=== PATIENT | male | born 2000 | race Caucasian/White ===

== ENCOUNTER 2025-01-26 09:28 | Emergency (ER) | payer OTHER, SELFPAY ==
--- NOTE | ~2025-01-26 | US_ITS ---
EXAMINATION: US SCROTUM HISTORY: lump in scrotum. COMPARISON: There are no prior studies for comparison. FINDINGS: Real-time grayscale ultrasound imaging of the scrotum was performed. Color and spectral Doppler analysis was also performed. RIGHT TESTICLE: The right testis measures 5.2 x 1.8 x 2.6 cm and demonstrates mildly heterogeneous echotexture. No masses are seen. The right testis demonstrates normal arterial and venous color Doppler and spectral waveforms. RIGHT EPIDIDYMIS: Normal in size, shape, and vascularity. There is a tiny 4 x 2 x 3 mm epididymal head cyst. LEFT TESTICLE: The left testis measures 5.2 x 1.8 x 2.8 cm and demonstrates mildly heterogeneous echotexture. No masses are seen. The left testis demonstrates normal arterial and venous color Doppler and spectral waveforms. LEFT EPIDIDYMIS: Normal in size, shape, and vascularity. There is a 4 x 4 x 5 mm cyst in the epididymal tail. VARICOCELE: None. HYDROCELE: No significant hydrocele is seen. OTHER COMMENTS: There is a 3 mm probable rim calcified structure just beneath the skin of the left scrotum, of uncertain significance. This appears to correspond to the palpable findings. US/US scrotum IMPRESSION: 3 mm rim calcified structure just beneath the skin of the left scrotum corresponding to the palpable findings. This is of uncertain etiology and significance, possibly representing an epidermal inclusion cyst. Electronically signed by: Christiano Jordan MD 01/26/2025 12:30 PM EDT
--- NOTE | ~2025-01-26 | US_ITS ---
EXAMINATION: US SCROTUM HISTORY: lump in scrotum. COMPARISON: There are no prior studies for comparison. FINDINGS: Real-time grayscale ultrasound imaging of the scrotum was performed. Color and spectral Doppler analysis was also performed. RIGHT TESTICLE: The right testis measures 5.2 x 1.8 x 2.6 cm and demonstrates mildly heterogeneous echotexture. No masses are seen. The right testis demonstrates normal arterial and venous color Doppler and spectral waveforms. RIGHT EPIDIDYMIS: Normal in size, shape, and vascularity. There is a tiny 4 x 2 x 3 mm epididymal head cyst. LEFT TESTICLE: The left testis measures 5.2 x 1.8 x 2.8 cm and demonstrates mildly heterogeneous echotexture. No masses are seen. The left testis demonstrates normal arterial and venous color Doppler and spectral waveforms. LEFT EPIDIDYMIS: Normal in size, shape, and vascularity. There is a 4 x 4 x 5 mm cyst in the epididymal tail. VARICOCELE: None. HYDROCELE: No significant hydrocele is seen. OTHER COMMENTS: There is a 3 mm probable rim calcified structure just beneath the skin of the left scrotum, of uncertain significance. This appears to correspond to the palpable findings. US/US scrotum doppler IMPRESSION: 3 mm rim calcified structure just beneath the skin of the left scrotum corresponding to the palpable findings. This is of uncertain etiology and significance, possibly representing an epidermal inclusion cyst. Electronically signed by: Christiano Jordan MD 01/26/2025 12:30 PM EDT
[2025-01-26 10:05] VITALS: BP 132/92; PULSE 96; RESP 16; TEMP 36.8; O2SAT 97; BMI 21.6
--- NOTE | 2025-01-26 10:05 | ED.GENADULT ---
HPI - General Adult General Chief complaint: Urogenital-Male Stated complaint: Pain Groin Area Time Seen by Provider: 01/26/25 12:56 Source: patient and RN notes reviewed Mode of arrival: ambulatory Limitations: no limitations History of Present Illness ED Provider: Rosmery Bernard PA-C HPI narrative: This is a 24-year-old male who presents emergency department for evaluation of lump to scrotum for the last year. Patient states that he is unsure if it has changed in size however he states that he noticed it about 1 year ago. Patient also states that he has had some discomfort in the right inner groin line, describing it as a pressure-like sensation. Patient also reports that he has had purplish chase throughout his body which occurs intermittently. He denies any known medical problems. No known family medical problems. He denies any dysuria, urinary frequency, urgency. He states that he has never been sexually active. No fevers, chills, chest pain, shortness of breath, abdominal pain, nausea, vomiting or diarrhea. No other complaints or concerns at this time. MD complaint: Lump on scrotum Relieving factors: none Exacerbating factors: none Treatments prior to arrival: none Related Data Allergies Allergy/AdvReac Type Severity Reaction Status Date / Time No Known Allergies Allergy Verified 01/26/25 10:10 Review of Systems Review of Systems: Yes all other systems are reviewed and are negative Constitutional: Constitutional: Reports as per [facility] Past Medical History Attestation statement: The following information was validated with the patient. Physical Exam ED Vital Signs: Vital Signs - 24 hr 01/26/25 10:05 Temperature 98.3 F Pulse Rate 96 Respiratory Rate 16 Blood Pressure 132/92 H Pulse Oximetry 97 Oxygen Delivery Method Room Air BMI result Body Mass Index 21.6 Const General: cooperative, comfortable and no acute distress Orientation/consciousness: patient oriented x3 Limitations: no limitations HENMT Head: Yes normal to inspection, Yes normocephalic and Yes atraumatic Ears: hearing grossly normal bilaterally General nose exam: Normal external nose present Face and sinus: Yes normal facial exam Mouth: Normal oral and palatal mucosa present, oropharynx normal and moist mucous membranes Throat: Yes posterior oropharynx normal Eyes General: appearance normal, both eyes and all related structures Eyelids: Yes eyelids normal Conjunctivae: conjunctivae normal Sclerae: sclerae normal Pupils: Equal, round and reactive pupils present EOM: EOMs intact bilaterally Neck Neck: Yes normal visual inspection, Yes full ROM and Yes no lymphadenopathy Lymphatic: no lymphadenopathy noted Chest Chest palpation & inspection: normal inspection of the chest Resp Effort & Inspection: normal respiratory effort and able to speak in complete sentences Auscultation: clear to auscultation bilaterally, no crackles, no rales, no rhonchi and no wheezes Cardio Rate: regular rate Rhythm: regular rhythm Heart sounds: S1 normal heart sound present and S2 normal heart sound present GI Inspection: Yes normal to inspection Other: examination performed with Michel Yappn present at all times. Left scrotum, with 1 mm papule noted, no surrounding erythema or warmth, nontender. Right inner groin with no appreciable mild tenderness, no surrounding erythema or warmth, no palpable masses. Skin General skin exam: no rashes or lesions noted Trauma: no lacerations or abrasions Wounds: no wounds Neuro General: patient oriented x3 and moves all extremities Cranial nerves: Yes Equal, round and reactive pupils present Extrem General: Yes normal to inspection Right upper extremity: normal to inspection Left upper extremity: normal to inspection Right lower extremity: normal to inspection Left lower extremity: normal to inspection Medical Decision Making Medical Decision Making MDM Narrative: This is a 24-year-old male who presents emergency department with complaints of lump to scrotum for the last year. On arrival, patient well-appearing, under no acute distress. Patient's blood pressure mildly elevated 132/92, all other vital signs within normal limits. He is not sexually active. examination performed with papule noted to left scrotum, with no surrounding erythema or warmth, no drainage. Nontender. Right inner groin, with reported pain however no palpable masses, or pain appreciated. Patient also reporting purplish chase noted to his upper and lower extremities, no appreciable skin changes on examination today. Labs were obtained, he was no leukocytosis, stable H&H, LFTs within normal limits, kidney function within normal limits. Urine with high specific gravity and hematuria, he will follow-up with the Urology. Ultrasound revealing a 3 mm rim calcified structure just beneath the skin of the left scrotum, corresponding to the palpable findings. This is of uncertain significance, possibly representing an epidermal inclusion cyst. Discussed findings with patient. He will follow-up with Urology. Given strict return precautions. He understands and agrees with plan. Patient stable for discharge Differential Diagnosis Differential Diagnoses: The differential diagnosis associated with the presentation includes Hydrocele, cystocele, epididymitis, cyst, mass Lab Data [facility] Lab Attestation statement: I reviewed the patient's lab results. See [facility] 01/26/25 12:11 01/26/25 12:11 Labs: Lab Results 01/26/25 Range/Units 12:11 WBC 8.2 (4.8-10.8) X10*3/uL RBC 5.00 (4.60-5.80) X10*6/uL Hgb 15.2 (14.0-18.0) g/dl Hct 44.2 (42.0-52.0) % MCV 88.4 (80.0-98.0) fL MCH 30.4 (27.0-33.0) pg MCHC 34.4 (31.0-36.0) g/dl RDW 12.6 (11.0-16.0) % Plt Count 353 (160-400) X10*3/uL MPV 9.4 (9.4-12.4) fL Immature Gran % (Auto) 0.2 (0.0-0.4) % Neut % (Auto) 66.4 (45-73) % Lymph % (Auto) 24.9 (20-40) % [place] % (Auto) 6.7 (2-11) % Eos % (Auto) 1.6 (0-4) % Baso % (Auto) 0.2 (0-2) % Lymph # (Auto) 2.1 (1.2-4.9) X10*3/uL [place] # (Auto) 0.6 (0.1-1.2) X10*3/uL Eos # (Auto) 0.1 (0.0-0.4) X10*3/uL Baso # (Auto) 0.0 (0.0-0.2) X10*3/uL Abs Immat Gran (auto) 0.02 (0.00-0.03) X10*3/uL Absolute Neuts (auto) 5.5 (2.0-8.3) x10*3/uL Absolute Nucleated RBC 0.000 (0.0-0.012) X10*3/uL Nucleated RBC % (auto) 0.0 (0.0-0.2) /100WBC Sodium 140 (135-145) mmol/L Potassium 3.7 (3.3-5.1) mmol/L Chloride 106 (96-108) mmol/L Carbon Dioxide 26 (22-29) mmol/L Anion Gap 12 (12-20) BUN 15 (9-16) mg/dL Creatinine 0.74 (0.5-1.4) mg/dL Estim Creat Clear Calc 124.3 Estimated GFR > 60 Random Glucose 98 (60-115) mg/dL Calcium 9.2 (8.4-10.2) mg/dL Total Bilirubin 0.6 (0.0-1.0) mg/dL AST 19 (5-37) U/L ALT 20 (0-40) U/L Alkaline Phosphatase 43 (39-117) U/L Total Protein 7.1 (6.5-8.0) g/dL Albumin 4.7 (3.5-5.0) g/dL Urine Color Yellow Urine Appearance Clear Urine pH 6.0 (5.0-9.0) Ur Specific [place] >= 1.030 H (1.005-1.025) Urine Protein Negative (Neg-Trace) mg/dL Urine Glucose (UA) Negative (Negative) mg/dL Urine Ketones 40 (Negative) mg/dL Urine Blood Trace H (Negative) Urine Nitrite Negative (Negative) Ur Leukocyte Esterase Negative (Negative) Urine RBC 0-2 (0-2) /HPF Urine WBC 0-5 (0-5) /HPF Ur Squamous Epith Cells 0-2 (0-2) /HPF Urine Bacteria None Seen (None Seen) Hyaline Casts 0-2 (0-2) /LPF Chlam trachomat DNA PCR NOT DETECTED (Not Detect.) N.gonorrhoeae DNA (PCR) NOT DETECTED (Not Detect.) Radiology Impression Discussion of test interpretation with radiology: I have reviewed the radiologist's reading. Radiologist Impression: [address] [id number] Ultrasound Report Signed Patient: hSakir Reeder MR#: [id number] : 2000 Acct:[id number] Age/Sex: 24 / M ADM Date: 01/26/25 Loc: HO.ED Attending Dr: Ordering Physician: Generic ED Physician Date of Service: 01/26/25 Procedure(s): US scrotum Accession Number(s): [id number] cc: Generic ED Physician; Physician,None ~ EXAMINATION: US SCROTUM HISTORY: lump in scrotum. COMPARISON: There are no prior studies for comparison. FINDINGS: Real-time grayscale ultrasound imaging of the scrotum was performed. Color and spectral Doppler analysis was also performed. RIGHT TESTICLE: The right testis measures 5.2 x 1.8 x 2.6 cm and demonstrates mildly heterogeneous echotexture. No masses are seen. The right testis demonstrates normal arterial and venous color Doppler and spectral waveforms. RIGHT EPIDIDYMIS: Normal in size, shape, and vascularity. There is a tiny 4 x 2 x 3 mm epididymal head cyst. LEFT TESTICLE: The left testis measures 5.2 x 1.8 x 2.8 cm and demonstrates mildly heterogeneous echotexture. No masses are seen. The left testis demonstrates normal arterial and venous color Doppler and spectral waveforms. LEFT EPIDIDYMIS: Normal in size, shape, and vascularity. There is a 4 x 4 x 5 mm cyst in the epididymal tail. VARICOCELE: None. HYDROCELE: No significant hydrocele is seen. OTHER COMMENTS: There is a 3 mm probable rim calcified structure just beneath the skin of the left scrotum, of uncertain significance. This appears to correspond to the palpable findings. US/US scrotum IMPRESSION: 3 mm rim calcified structure just beneath the skin of the left scrotum corresponding to the palpable findings. This is of uncertain etiology and significance, possibly representing an epidermal inclusion cyst. Electronically signed by: Christiano Jordan MD 01/26/2025 12:30 PM EDT Dictated By: Christiano Jordan MD External Record Review External record reviewed: Inpatient record, Office record, Outpatient record, Prior outpatient labs, Prior outpatient radiology, Primary care record and Outside ED record Discharge Plan Discharge Clinical Impression: Testicular cyst Patient Disposition: Home, Self-Care Instructions: Testicle Pain (ED) Additional Instructions: You were seen in the emergency department due to lump in scrotum for the last year. Your ultrasound shows a 3 mm probable rim calcified structure just beneath the skin of the left scrotum. Uncertain of significance. Please follow-up with the urologist. This may be a cyst, the urologist can further assess this. Your blood work was reassuring. You do not have a significantly high white blood cell count, your liver function is within normal limits, your kidney function is within normal limits. Urine does not appear to be infected. It does appear that you may be slightly dehydrated, drink plenty of fluids. You also have trace blood in your urine, please follow-up with the urologist regarding this. You should get a primary care physician, you may call the [facility], or call your health insurance to see where they are accepting new patients. If any new or worsening symptoms occur including but not limited to high fevers, severe chest pain, shortness for breath, severe testicular pain, please seek emergent care. US/US scrotum IMPRESSION: 3 mm rim calcified structure just beneath the skin of the left scrotum corresponding to the palpable findings. This is of uncertain etiology and significance, possibly representing an epidermal inclusion cyst. Referrals: [facility] [Provider Group] Interventions: ED Discharge Assessment Last Done: 01/26/25 13:34 Discharge Date/Time: 01/26/25 13:34 Print Language: Faroese
[2025-01-26 12:16] LABS: MANUAL DIFF FLAG NO
[2025-01-26 12:19] LABS: Appearance Urine Clear; Color Urine Yellow; Glucose Urine UA Negative (Negative); Leukocyte Esterase Urine Negative (Negative); Nitrite Urine Negative (Negative); Specific Gravity - Urine >= 1.030 (1.005-1.025); UMIC TRIGGER UACC YES; Urine Blood Trace (Negative); Urine Ketones 40 mg/dL (Negative); Urine Protein Negative (Neg-Trace)
[2025-01-26 12:21] LABS: Bacteria Urine None Seen (None Seen); Hyaline Casts Urine 0-2 /LPF (0-2); RBC Urine 0-2 /HPF (0-2); Squamous Epithelial Cell Urine 0-2 /HPF (0-2); WBC Urine 0-5 /HPF (0-5)
[2025-01-26 12:22] LABS: Basophils Percent Auto 0.2 % (0-2); Eosinophils Absolute Auto 0.1 X10*3/uL (0.0-0.4); Eosinophils Percent Auto 1.6 % (0-4); Hematocrit 44.2 % (42.0-52.0); Hemoglobin 15.2 g/dl (14.0-18.0); Imm Gran Abs Auto 0.02 X10*3/uL (0.00-0.03); Imm Gran Pct Auto 0.2 % (0.0-0.4); Lymphocytes Absolute Auto 2.1 X10*3/uL (1.2-4.9); Lymphocytes Percent Auto 24.9 % (20-40); Mean Corpuscular HGB Conc 34.4 g/dl (31.0-36.0); Mean Corpuscular Hemoglobin 30.4 pg (27.0-33.0); Mean Corpuscular Volume 88.4 fL (80.0-98.0); Mean Platelet Volume 9.4 fL (9.4-12.4); Monocytes Absolute Auto 0.6 X10*3/uL (0.1-1.2); Monocytes Percent Auto 6.7 % (2-11); Neutrophils Absolute Auto 5.5 x10*3/uL (2.0-8.3); Neutrophils Percent Auto 66.4 % (45-73); Platelet Count 353 X10*3/uL (160-400); Red Cell Distribution Width 12.6 % (11.0-16.0); White Blood Count 8.2 X10*3/uL (4.8-10.8)
[2025-01-26 12:45] LABS: Alanine Aminotransferase 20 U/L (0-40); Albumin Level 4.7 g/dL (3.5-5.0); Alkaline Phosphatase 43 U/L (39-117); Anion Gap 12 (12-20); Aspartate Amino Transferase 19 U/L (5-37); Bilirubin Total 0.6 mg/dL (0.0-1.0); Blood Urea Nitrogen 15 mg/dL (9-16); Calcium 9.2 mg/dL (8.4-10.2); Carbon Dioxide 26 mmol/L (22-29); Chloride 106 mmol/L (96-108); Creatinine Clr Calc Pharmacy 124.3; Estimated Glomerular Filt Rate > 60; Glucose Random 98 mg/dL (60-115); Potassium 3.7 mmol/L (3.3-5.1); Sodium 140 mmol/L (135-145); Total Protein 7.1 g/dL (6.5-8.0)
[2025-01-26 13:34] VITALS: BP 132/92; PULSE 96; RESP 16; TEMP 36.8; O2SAT 97
[2025-01-26 13:54] LABS: CT PCR NOT DETECTED (Not Detect.); NG PCR NOT DETECTED (Not Detect.)
--- OUTSIDE RECORDS SUMMARY | 2025-01-26 14:56 | XMS_ITS | Clinical Summary ---
Author Organization [facility] Address [address] [place] [id number] Phone Care Team Providers Care Business Objects Report Developer Name Role Phone Marin Juarez MD Primary Care Provider [phone] Immunizations Immunization Administration Dates Next Due DTaP 5 04/26/2006, 2,05/01/2001,02/28,2000 HPV Vaccine 9 Valent 09/21/2017,07/16/2015 Hep A, ped/adol 09/21/2017,07/16/2015 Hep B, ped/adol 02/21/2002,05/01/2001,2000 Hib (PRP-T) 02/21/2002, 1,02/28/2001,12/31 IPV 04/26/2006, 2,02/28/2001,12/31 Influenza, injectable, quadr ivalent, preservative free 09/21/2017,07/16/2015 Influenza, injectable, trivalent 05/26/2010 Influenza, intranasal, quadrivalent 07/25/2013 MMR 04/26/2006,11/04/2001 Meningococcal Conj (Menactra) MCV4P 09/21/2017,0 05/16/2013 Pneumococcal Conjugate 05/01/2001,02/28/2001, Tdap 05/16/2013 Varicella 05/16/2013,11/04/2001 Social History Tobacco Use Types Packs/Day Years Used Date Smoking Tobacco: Never Comments:Never Smoker Sex and Gender Information Value Date Recorded Sex Assigned at Not on file Legal Sex Male 6:24 PM EDT Gender Identity Not on file Sexual Orientation Not on file Last Filed Vital Signs Vital Sign Reading Time Taken Comments Blood Pressure - - Pulse 72 09/21/2017 1:01 PM EST Temperature 36.9 ??C (98.4 ??F) 11/30/2017 2:37 PM ES T Respiratory Rate - - Oxygen Saturation - - Inhaled Oxygen Concentration - - Weight 49.9 kg (110 lb) 11/30/2017 2:37 PM EST Height 160.7 cm (5' 3.25 ) 11/30/2017 2:37 PM ES T Body Mass Index 19.33 11/30/2017 2:37 PM EST Plan of Treatment Health Maintenance Due Date Last Done Comments DTaP,Tdap,and Td Vaccines (7 - Td or Tdap) 05/16/2023 05/16/2013, 04/26/2006, 05/02/2002, Additional history exists Influenza Vaccines (#1) 2024 09/21/20 17, 07/16/2015, 07/25/2013, Additional history exists COVID-19 Vaccine ( season) 2024 Pneumococcal Vaccine Aged Out 05/01/2001, 02/28/2001, 2000 No longer eligible based on patient's age to complete this topic HIB Vaccines Completed 02/21/2002, 04/14, 02/28/2001, Additional history exists Hepatitis B Vaccines Completed 02/21/2002, 05/01/2001, 2000 IPV Vaccines Completed 04/26/2006, 04/14, 02/28/2001, Additional history exists MMR Vaccines Completed 04/26/2006, 11/04/2001 Varicella Vaccines Completed 05/16/2013, 11/04/2001 HPV Vaccines Completed 09/21/2017, 07/16/2015 Hepatitis A Vaccines Completed 09/21/2017, 07/16/20 Meningococcal Vaccine Completed 09/21/2017, 013 Men B Vaccine Aged Out No longer elig ible based on patient's age to complete this topic Care Teams Business Objects Report Developer Relationship Specialty Start Date End Date Marin Juarez MD [facility] [facility] [place] [address] PCP - General 02/20/18
--- OUTSIDE RECORDS SUMMARY | 2025-01-26 14:56 | XMS_ITS | Encounter Summary ---
Author Organization [facility] Address [address] [place] [address] Phone Care Team Providers Care Excellence Coach Name Role Phone Marin Juarez MD Primary Care Provider [phone] Encounter Details Date Type Department Care Team (Late st Contact Info) Description 12/22/2010 Conversion Encounter [facility] [address] [place] [address] Dr Mcdaniel ENOC [id number] Social History Tobacco Use Types Packs/Day Years Used Date Smoking Tobacco: Never Assessed Sex and Gender Information Value Date Recorded Sex Assigned at Not on file Legal Sex Male 6:24 PM EDT Gender Identity Not on file Sexual Orientation Not on file documented as of this encounter Plan of Treatment Not on file documented as of this encounter Visit Diagnoses Not on filedocumented in this encounter Care Teams Excellence Coach Relationship Specialty Start Date End Date Marin Juarez MD [address] [place] [address] Dr Mcdaniel [facility]OC [id number] PCP - General 02/20/18 documented as of this encounter
== END 2025-01-26 13:34 | disposition home or self-care (01) ==
PROVIDERS: Physician Assistant Medical; Emergency Provider Emergency Medicine
DX: N50.3 Cyst of epididymis (principal); R10.30 Lower abdominal pain, unspecified; R10.2 Pelvic and perineal pain; N50.9 Disorder of male genital organs, unspecified; Z79.899 Other long term (current) drug therapy
CPT/HCPCS: 36415; 76870; 80053; 81001; 85025; 87491; 87591; 93975; 99284

== ENCOUNTER → 2025-01-26 10:10 | Outpatient (BNV) | payer OTHER, SELFPAY | PROVIDERS: Visit Provider Radiology Diagnostic Radiology | DX: L94.2 Calcinosis cutis (principal); N50.3 Cyst of epididymis | CPT/HCPCS: 76870; 93975 ==

== ENCOUNTER 2025-03-03 18:54 | Emergency (ER) | payer OTHER, SELFPAY ==
--- NOTE | ~2025-03-03 | CT_ITS ---
CLINICAL HISTORY: LLQ pain CT abdomen and pelvis with contrast Comparison: None Findings: No consolidation or effusion. The liver, gallbladder, spleen, adrenal glands and pancreas are unremarkable. Kidneys, ureters and bladder are normal. No bowel obstruction or free air. No free fluid, abscess or adenopathy. Normal appendix. Scattered gas and fluid throughout nondistended small and large bowel. Mild engorgement of the vasa recta. Reference axial images 71-75, there is the suggestion of abnormal thickening of the rectum. No pneumatosis. No acute osseous finding. Impression: There is the suggestion of abnormal thickening involving the rectum. Correlation for proctitis. Outpatient GI follow-up could be considered. Scattered gas and fluid throughout nondistended small and large bowel may also be seen with enteritis. No free air, pneumatosis, abscess or significant adenopathy. This document has been electronically signed by: Jake Keith MD on 03/03/2025 22:42:20
[2025-03-03 19:11] VITALS: BP 116/72; PULSE 85; RESP 18; TEMP 36.2; O2SAT 98; BMI 22.3
--- NOTE | 2025-03-03 19:13 | ED.GENADULT ---
HPI - General Adult General Chief complaint: Abdominal Pain Stated complaint: Abd Pain 3 Days, Vomitting Time Seen by Provider: 03/03/25 21:47 Source: patient and family Mode of arrival: ambulatory Limitations: no limitations History of Present Illness ED Provider: YOU HPI narrative: 24 yo male with no sig PMH and no surgeries mom is here and thinks maybe a fam hx of colitis who has had nausea, AM vomiting, LLQ pain for 3 days. No known fevers, no change in BMs. He has no dysuria. He has never had this before. He notes it just won't go away. No OTC medications for it. MD complaint: abdominal pain Onset (ago): day(s) (3) Location: abdomen Radiation: non-radiation Severity: moderate Quality: aching Pain Consistency: intermittent Relieving factors: none Exacerbating factors: eating Associated symptoms: loss of appetite, malaise and nausea/vomiting Treatments prior to arrival: none Related Data Previous Rx's ?Medication ?Instructions ?Recorded amoxicillin 875 mg-potassium 1 tab PO BID #14 tabs 03/03/25 clavulanate 125 mg tablet ondansetron 4 mg disintegrating 4 mg PO Q8H PRN nausea and 03/03/25 tablet vomiting #20 tabs Allergies Allergy/AdvReac Type Severity Reaction Status Date / Time No Known Allergies Allergy Verified 03/03/25 19:12 Review of Systems Review of Systems: Constitutional : No Weight loss, No Fever, No Chills ENT/Mouth : No sore throat, No Rhinorrhea Eyes: No Swelling, No Redness Cardiovascular : No Chest Pain, No SOB, NoEdema Respiratory : No Cough, No Sputum, No Wheezing Gastrointestinal : Positive Nausea, Positive Vomiting, no Diarrhea, positive abdominal Pain, No Hematochezia, No Melena Genitourinary : No Dysuria, No Urinary Frequency, No Hematuria, No Urgency Musculoskeletal : No joint pain, No Myalgias, No Joint Swelling Skin : No Skin Lesions, No rash Neuro : No Weakness, No Numbness, No Dizziness, No Headache All other systems reviewed and are negative. [facility] Past Medical History Attestation statement: The following information was validated with the patient. Source: old records reviewed Medical History No pertinent past medical history Social History Social History (Updated 03/03/25 @ 22:30 by Zeina Monsivais DO) Patient Tobacco Use Status: Never used Tobacco Advance Directives: No Advance Directives Information Provided: No Do you have a plan to hurt others: No Plan Physical Exam ED Vital Signs: Vital Signs - 24 hr 03/03/25 19:11 Temperature 97.2 F Pulse Rate 85 Respiratory Rate 18 Blood Pressure 116/72 Pulse Oximetry 98 Oxygen Delivery Method Room Air BMI result Body Mass Index 22.3 Appearance: Alert. Oriented X3. No acute distress. Eyes: Pupils equal, round and reactive to light. ENT: Pharynx normal. Neck: Normal inspection. Neck supple. CVS: Normal heart rate and rhythm. Pulses normal. Respiratory: No respiratory distress. Breath sounds normal. Abdomen: Soft and moderate LLQ pain no rebound or guarding Skin: Skin warm and dry. Normal skin color. Normal skin turgor. Extremities: No lower extremity edema. No calf ttp Neuro: Oriented X 3. No motor deficit. No sensory deficit. CN2-12 intact Course Course Course Narrative: 03/03/251913 HALLIE Messer This is a Rapid Medical Examination (RME) performed by Hannah Amaro PA-C in triage. Full HPI, ROS, assessment and treatment plan per primary provider in the Main ED. Hx: 24 yo M here for eval of intermittent LUQ abd pain, poor appetite, N/V/D. PE/vitals: well appearing Plan: labs, UA Medications Administered Discontinued Medications Generic Name Dose Route Start Last Admin Trade Name Freq PRN Reason Stop Dose Admin Lactated Ringer's 1,000 mls @ 999 mls/hr 03/03/25 22:01 03/03/25 22:09 Lr IV 03/03/25 23:01 999 mls/hr .Q1H1M ONE Administration Iohexol 85 ml 03/03/25 22:24 03/03/25 22:24 Iohexol 350 Mg/Ml 100 Ml Infus..Btl IV 03/03/25 22:25 85 ml ONCE ONE Administration Ketorolac Tromethamine 15 mg 03/03/25 22:01 03/03/25 22:09 Ketorolac Tromethamine 15 Mg/Ml Vial IVPUSH 03/03/25 22:02 15 mg ONCE ONE Administration Medical Decision Making Medical Decision Making MDM Narrative: 24 yo male with no sig PMH here with c/o LLQ pain and nausea and loss of appetite no fevers, no diarrhea, normal BMs at this time will need labs, UA, and CT scan for renal colic, colitis, constipation. He denies symptoms. Differential Diagnosis Differential Diagnoses: The differential diagnosis associated with the presentation includes diverticulitis, constipation, renal colic Admission/Observation Consideration of admission/observation: Escalation of care including admission/observation considered start on oral augmentin and DC home no rectal pain or bleeding Lab Data MDM Lab Attestation statement: I reviewed the patient's lab results. 03/03/25 19:27 03/03/25 19:27 Labs: Lab Results 03/03/25 03/03/25 Range/Units 19: 19:46 WBC 7.5 (4.8-10.8) X10*3/uL RBC 5.10 (4.60-5.80) X10*6/uL Hgb 15.5 (14.0-18.0) g/dl Hct 44.3 (42.0-52.0) % MCV 86.9 (80.0-98.0) fL MCH 30.4 (27.0-33.0) pg MCHC 35.0 (31.0-36.0) g/dl RDW 12.5 (11.0-16.0) % Plt Count 322 (160-400) X10*3/uL MPV 9.3 L (9.4-12.4) fL Immature Gran % (Auto) 0.1 (0.0-0.4) % Neut % (Auto) 76.2 H (45-73) % Lymph % (Auto) 16.4 L (20-40) % [place] % (Auto) 6.1 (2-11) % Eos % (Auto) 0.8 (0-4) % Baso % (Auto) 0.4 (0-2) % Lymph # (Auto) 1.2 (1.2-4.9) X10*3/uL [place] # (Auto) 0.5 (0.1-1.2) X10*3/uL Eos # (Auto) 0.1 (0.0-0.4) X10*3/uL Baso # (Auto) 0.0 (0.0-0.2) X10*3/uL Abs Immat Gran (auto) 0.01 (0.00-0.03) X10*3/uL Absolute Neuts (auto) 5.7 (2.0-8.3) x10*3/uL Absolute Nucleated RBC 0.000 (0.0-0.012) X10*3/uL Nucleated RBC % (auto) 0.0 (0.0-0.2) /100WBC Sodium 138 (135-145) mmol/L Potassium 4.3 (3.3-5.1) mmol/L Chloride 104 (96-108) mmol/L Carbon Dioxide 24 (22-29) mmol/L Anion Gap 14 (12-20) BUN 10 (9-16) mg/dL Creatinine 0.78 (0.5-1.4) mg/dL Estim Creat Clear Calc 121.7 Estimated GFR > 60 Random Glucose 99 (60-115) mg/dL Calcium 9.1 (8.4-10.2) mg/dL Magnesium 2.0 (1.6-2.6) mg/dL Total Bilirubin 1.0 (0.0-1.0) mg/dL AST 21 (5-37) U/L ALT 35 (0-40) U/L Alkaline Phosphatase 46 (39-117) U/L Total Protein 7.2 (6.5-8.0) g/dL Albumin 4.7 (3.5-5.0) g/dL Lipase 11 (8-78) U/L Urine Color Yellow Urine Appearance Clear Urine pH 6.5 (5.0-9.0) Ur Specific [place] <= 1.005 (1.005-1.025) Urine Protein Negative (Neg-Trace) mg/dL Urine Glucose (UA) Negative (Negative) mg/dL Urine Ketones Trace (Negative) mg/dL Urine Blood Negative (Negative) Urine Nitrite Negative (Negative) Ur Leukocyte Esterase Negative (Negative) Independent Interpretation I performed an independent interpretation of an: CT Scan (?rectal inflammation) Radiology Impression Discussion of test interpretation with radiology: I have reviewed the radiologist's reading. Independent Historian Clinical information obtained from an independent historian. History obtained from or confirmed by: Parent Prescription Management I considered prescription management with: Antibiotic Discharge Plan Discharge Clinical Impression: Acute proctitis, Abdominal pain Patient Disposition: Home, Self-Care Instructions: Proctitis (ED), Abdominal Pain (ED) Additional Instructions: labs reassuring - cell counts, liver, pancreas, kidneys urine normal CT scan shows possible inflammation near rectum will start on oral antibiotics return for worsening pain, fevers, vomiting, bloody stools follow up and schedule appointment with GI doctor On amoxicillin-clavulanate, softer bowel movements are to be expected. Call your provider if you move your bowels more than 4 times a day, your bowel movements are almost all liquid, or you get a rash.? There is the suggestion of abnormal thickening involving the rectum. Correlation for proctitis. Outpatient GI follow-up could be considered. Scattered gas and fluid throughout nondistended small and large bowel may also be seen with enteritis. No free air, pneumatosis, abscess or significant adenopathy. Prescriptions: New ondansetron 4 mg tablet,disintegrating 4 mg PO Q8H PRN (Reason: nausea and vomiting) Qty: 20 0RF amoxicillin-pot clavulanate 875-125 mg tablet 1 tab PO BID Qty: 14 0RF Print Language: Danish
[2025-03-03 19:32] LABS: MANUAL DIFF FLAG NO
[2025-03-03 19:33] LABS: Basophils Percent Auto 0.4 % (0-2); Eosinophils Absolute Auto 0.1 X10*3/uL (0.0-0.4); Eosinophils Percent Auto 0.8 % (0-4); Hematocrit 44.3 % (42.0-52.0); Hemoglobin 15.5 g/dl (14.0-18.0); Imm Gran Abs Auto 0.01 X10*3/uL (0.00-0.03); Imm Gran Pct Auto 0.1 % (0.0-0.4); Lymphocytes Absolute Auto 1.2 X10*3/uL (1.2-4.9); Lymphocytes Percent Auto 16.4 % (20-40); Mean Corpuscular Hemoglobin 30.4 pg (27.0-33.0); Mean Corpuscular Volume 86.9 fL (80.0-98.0); Mean Platelet Volume 9.3 fL (9.4-12.4); Monocytes Absolute Auto 0.5 X10*3/uL (0.1-1.2); Monocytes Percent Auto 6.1 % (2-11); Neutrophils Absolute Auto 5.7 x10*3/uL (2.0-8.3); Neutrophils Percent Auto 76.2 % (45-73); Platelet Count 322 X10*3/uL (160-400); Red Cell Distribution Width 12.5 % (11.0-16.0); White Blood Count 7.5 X10*3/uL (4.8-10.8)
[2025-03-03 19:47] LABS: Alanine Aminotransferase 35 U/L (0-40); Albumin Level 4.7 g/dL (3.5-5.0); Alkaline Phosphatase 46 U/L (39-117); Anion Gap 14 (12-20); Aspartate Amino Transferase 21 U/L (5-37); Blood Urea Nitrogen 10 mg/dL (9-16); Calcium 9.1 mg/dL (8.4-10.2); Carbon Dioxide 24 mmol/L (22-29); Chloride 104 mmol/L (96-108); Creatinine Clr Calc Pharmacy 121.7; Estimated Glomerular Filt Rate > 60; Glucose Random 99 mg/dL (60-115); Lipase 11 U/L (8-78); Potassium 4.3 mmol/L (3.3-5.1); Sodium 138 mmol/L (135-145); Total Protein 7.2 g/dL (6.5-8.0)
[2025-03-03 20:00] LABS: Appearance Urine Clear; Color Urine Yellow; Glucose Urine UA Negative (Negative); Leukocyte Esterase Urine Negative (Negative); Nitrite Urine Negative (Negative); PH 6.5 (5.0-9.0); Specific Gravity - Urine <= 1.005 (1.005-1.025); Urine Blood Negative (Negative); Urine Ketones Trace mg/dL (Negative); Urine Protein Negative (Neg-Trace)
[2025-03-03] MEDS: Ketorolac Tromethamine 15 MG/ML VIAL IVPUSH (22:09)
[2025-03-03] MEDS: Lactated Ringers 1,000 ML 999 ML IV (22:09)
[2025-03-03] MEDS: iohexoL 350 MG/ML 100 ML INFUS..BTL 85 ML IV (22:24)
[2025-03-03 23:22] VITALS: BP 114/67; PULSE 89; RESP 15; TEMP 37.1; O2SAT 99
[2025-03-03] MEDS: Amoxicillin/Potassium Clav 875 MG TABLET PO (23:28)
[2025-03-03 23:32] VITALS: BP 114/67; PULSE 89; RESP 15; TEMP 37.1; O2SAT 99
== END 2025-03-03 23:33 | disposition home or self-care (01) ==
PROVIDERS: Physician Assistant Medical; Emergency Provider Emergency Medicine
DX: K62.89 Other specified diseases of anus and rectum (principal); R10.2 Pelvic and perineal pain; R11.2 Nausea with vomiting, unspecified; R10.32 Left lower quadrant pain; Z79.899 Other long term (current) drug therapy
CPT/HCPCS: 36415; 74177; 80053; 81003; 83690; 83735; 85025; 96361; 96374; 99284; J1885; J7120; Q9967

== ENCOUNTER → 2025-03-03 22:01 | Outpatient (BNV) | payer OTHER, SELFPAY | PROVIDERS: Emergency Provider Emergency Medicine; Visit Provider Radiology Vascular & Interventional Radiology | DX: R10.32 Left lower quadrant pain (principal) | CPT/HCPCS: 74177 ==

== ENCOUNTER 2025-03-25 13:50 | Outpatient (AMB) | payer OTHER, SELFPAY ==
--- NOTE | 2025-03-25 14:07 | A.OFFVIS_ITS ---
Intake Visit Reasons: testicular cyst Intake Note: New patient presents today for initial visit for testicular cyst Urology Medication:None Blood Thinner:None Antibiotic Allergies:None Allergies No Known Allergies Allergy (Verified 03/25/25 14:37) Medication List - Last Reconciled 03/25/25 by RANDY Jones No Known Home Meds HPI Comments Details: Shakir is a 24-year-old male patient who was accompanied by Tiny his mom at today's office visit. He presents to the office today as a new patient for scrotal cysts. In discussion with the patient today reports scrotal cyst has been present for 2 years however at times has irritation to the area and is enquiring further assessment evaluation. In assessment of the patient today 2-3 mm fluid-filled lump on the left side of the scrotum. No open areas, lesions, and or masses palpated throughout the area. When asked he reports he is not currently sexually active. He denies any bothersome urinary issues. He denies urinary urgency, urinary frequency, incontinence, nocturia, hematuria, dysuria, foul smelling urine, changes to urinary stream, flank pain, fever, and or chills. He is happy with his current voiding parameters. We discussed further treatment options of sebaceous cyst and risks and benefits of these treatment options. We discussed surveillance monitoring verses trial of doxycycline verses incision and drainage. Risks and benefits of these interventions were discussed. Scrotal ultrasound 02/06 3 mm calcified structure just beneath the skin of the left scrotum. All questions were answered. He otherwise offers no other issues or concerns at this time. [facility] Medical History No pertinent past medical history Social History Patient Tobacco Use Status: Never used Tobacco Review of Systems Const All systems reviewed & are unremarkable except as noted in HPI and below Physical Exam Const General: cooperative, healthy appearing, comfortable, no acute distress, well developed, alert and awake Orientation/consciousness: patient oriented x3 Limitations: no limitations HEENT Head: Yes normal to inspection, Yes normocephalic and Yes atraumatic Ears: hearing grossly normal bilaterally Eyes General: appearance normal, both eyes and all related structures Neck Neck: Yes normal visual inspection and Yes trachea midline Chest Chest palpation & inspection: normal inspection of the chest Resp Effort & Inspection: normal respiratory effort and able to speak in complete sentences Cardio Rate: regular rate GI Inspection: Yes normal to inspection General: Yes no CVA tenderness Back/Spine/Pelvis Back: no CVA tenderness Skin General skin exam: no rashes or lesions noted Neuro General: patient oriented x3 Extrem General: Yes normal to inspection Psych Appearance: grossly normal and well kempt Mental Status: mental status grossly normal Speech and movement: Normal speech and movement present and Clear speech present Affect: normal affect Attitude: cooperative and Avoids eye contact (attititude/behavior) Thought process: Normal thought process present Thought content: Normal thought content present Results Reviewed Results Reviewed: Date of Service: 01/26/25 Procedure(s): US scrotum FINDINGS: Real-time grayscale ultrasound imaging of the scrotum was performed. Color and spectral Doppler analysis was also performed. RIGHT TESTICLE: The right testis measures 5.2 x 1.8 x 2.6 cm and demonstrates mildly heterogeneous echotexture. No masses are seen. The right testis demonstrates normal arterial and venous color Doppler and spectral waveforms. RIGHT EPIDIDYMIS: Normal in size, shape, and vascularity. There is a tiny 4 x 2 x 3 mm epididymal head cyst. LEFT TESTICLE: The left testis measures 5.2 x 1.8 x 2.8 cm and demonstrates mildly heterogeneous echotexture. No masses are seen. The left testis demonstrates normal arterial and venous color Doppler and spectral waveforms. LEFT EPIDIDYMIS: Normal in size, shape, and vascularity. There is a 4 x 4 x 5 mm cyst in the epididymal tail. VARICOCELE: None. HYDROCELE: No significant hydrocele is seen. OTHER COMMENTS: There is a 3 mm probable rim calcified structure just beneath the skin of the left scrotum, of uncertain significance. This appears to correspond to the palpable findings. IMPRESSION: 3 mm rim calcified structure just beneath the skin of the left scrotum corresponding to the palpable findings. This is of uncertain etiology and significance, possibly representing an epidermal inclusion cyst. Assessment & Plan Assessment & Plan (1) Sebaceous cyst: Code(s): L72.3 - Sebaceous cyst Category: Medical Plan Recent scrotal imaging results reviewed with the patient and his mom today; as noted above. We discussed sebaceous cysts as well as further interventions and risks and benefits of these interventions. Patient currently denies any bothersome urinary issues or concerns. He reports be happy with current voiding parameters. We discussed proper hygiene in the area to include trimming verses shaving All questions were answered Follow-up PRN. Orders: Orders AMB Urinalysis Automated Today Z13.9 - Encounter for screening, unspecified Medications: New doxycycline hyclate 100 mg PO BID 14 days 28 tabs 0RF N39.0 - Urinary tract infection, site not specified, N45.1 - Epididymitis Discontinued ondansetron Discontinued Reason: Patient no longer taking 4 mg PO Q8H PRN 20 tabs 0RF nausea and vomiting amoxicillin-pot clavulanate 875-125 mg Discontinued Reason: Patient no longer taking 1 tab PO BID 14 tabs 0RF Patient Instructions: A well lubricated 16 Portuguese cystoscope was placed No abnormality noted of urethra during placement Indwelling stent seen within bladder emerging from [right left] ureteric orifices The stent was grasped with a 3 prong grasper and removed without difficulty The patient tolerated the procedure well Coding Level of Care Code New Pt Level 4 (28120) Diagnoses Sebaceous cyst L72.3
--- OUTSIDE RECORDS SUMMARY | 2025-03-25 15:45 | XMS_ITS | Clinical Summary ---
Author Organization [facility]' Address [address] [place] [id number] Phone Care Team Providers Care Terminologist Name Role Phone Marin Juarez MD Primary Care Provider Immunizations Immunization Administration Dates Next Due DTaP [...] age to complete this topic Care Teams Terminologist Relationship Specialty Start Date End Date Marin Juarez MD [facility] [place] [address] PCP - General 02/20/18
== END 2025-03-25 14:35 | disposition home or self-care (01) ==
LOC: HO.HUSH 13:51
PROVIDERS: Visit Provider Nurse Practitioner Family
DX: L72.3 Sebaceous cyst (principal)
CPT/HCPCS: 99204

== ENCOUNTER → 2025-03-25 13:50 | Outpatient (BNVA) | payer OTHER, SELFPAY | PROVIDERS: Visit Provider Nurse Practitioner Family ==

== ENCOUNTER 2025-05-05 15:02 | Outpatient (AMB) | payer OTHER, SELFPAY ==
--- NOTE | 2025-05-05 15:03 | A.OFFPC_ITS ---
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 Room Required: No Accompanied by: Self / Same As Patient Allergies cat dander (cats) Allergy (Verified 05/06/25 01:22) Nasal congestion dog dander (dogs) Allergy (Verified 05/06/25 01:22) Nasal congestion grass pollen Allergy (Verified 05/06/25 01:22) Nasal congestion house dust mite Allergy (Verified 05/06/25 01:22) Nasal congestion Medication List - Last Reconciled 05/05/25 by DORIS Ann doxycycline hyclate 100 mg PO BID 14 days Tobacco use date assessed: 05/05/25 Dental Screening Dental Screen Date: 05/05/25 Did you have a dental visit in the last 12 months?: Yes Did you have a dental problem in the last 6 months where you did not have access to dental care?: No Was dental information given to patient?: No HPI establish care HPI Details The patient is a 24 year old male presenting to [facility]. The patient is accompanied by his mother Sana. Previous PCP:[facility] Last visit: years ago Last PE: Report that he had not have a physical in a while Specialist: no OBGYN:n/a Past medical history: No significant PMH, environmental allergies, cats, dogs, grass, dust, Medications:Reports using a nasal spray on and off Family HX: dm sister type1, maternal grandfather dm, maternal grandmother had lung cancer, mother ms, Problem: The patient is a 24-year-old male presenting with abdominal pain and constipation. The abdominal pain is described as intermittent and radiating, with occasional discomfort in the lower left quadrant. Patient reports recently going to the hospital for abdominal pain and nausea and vomiting. UA was negative in the emergency room, cat scan was concerning for proctitis and the patient was treated for the Augmentin. Reports that his pain has gotten somewhat better for the every once in a while he gets a mild pain in the left lower quadrant sometimes radiating to the right. The patient also was evaluated recently for scrotal cyst that was present for almost two years before becoming bothersome. Again, was evaluated in the ED and was found to have a 3mm calcified left scrotum sebaceous cyst and was treated with doxycycline and was told to monitor for any changes. Per patient, the cyst has gotten smaller but is still present The patient experiences constipation, with bowel movements occurring every three to four days, which has been a lifelong pattern. The patient reports that the stool is often hard and pebble-like, and there is a history of dehydration, which may contribute to the constipation. The patient has been advised to increase fluid intake to improve bowel regularity. The patient has a family history of diabetes, multiple sclerosis, and cancer, which are relevant to his overall health assessment. He also reports environmental allergies, primarily to cats, grass, and dust, managed with nasal sprays like Flonase. [facility] Medical History (Updated 05/06/25 @ 07:48 by DORIS Ann) Allergic rhinitis Sebaceous cyst Constipation No pertinent past medical history Family History Maternal Grandfather Diabetes Maternal Grandmother Lung cancer Sister Diabetes Mother Multiple sclerosis exacerbation Social History Housing: House Patient Tobacco Use Status: Never used Tobacco Questionnaire PHQ-9 Over the last 2 weeks, how often have you been bothered by any of the following problems? 1. Little interest or pleasure in doing things: not at all 2. Feeling down, depressed, or hopeless: not at all 3. Trouble falling or staying asleep, or sleeping too much: several days 4. Feeling tired or having little energy: several days 5. Poor appetite or overeating: not at all 6. Feeling bad about yourself - or that you are a failure or have let yourself or your family down: not at all 7. Trouble concentrating on things, such as reading the newspaper or watching television: not at all 8. Moving or speaking so slowly that other people could have noticed. Or the opposite - being so fidgety or restless that you have been moving around a lot more than usual: several days 9. Thoughts that you would be better off or of hurting yourself in some way: not at all Total score: 3 Depression Screening Interpretation: Negative Depression Screening Done: Yes 24366 - PHQ-9 Billing: Yes Source: Developed by Drs. Christiano Corey, Elena Abarca, José Miguel Blackwood and colleagues, with an educational blaine from [employer]. Thrive Questionnaire Date Thrive assessed: 05/05/25 I am a: Patient What is your living situation today?: I choose not to answer this question Within the past 12 months, did the food you bought not last and you didn't have the money to get more?: I choose not to answer this question Within the past 12 months, did you worry whether your food would run out before you got money to buy more?: I choose not to answer this question Do you have trouble paying for medicines?: I choose not to answer this question Do you have trouble getting transportation to medical appointments?: I choose not to answer this question Do you have trouble paying your heating and electricity bill?: I choose not to answer this question Do you have trouble taking care of your child, family member or friend?: I choose not to answer this question Do you have trouble with day-to-day activities such as bathing, preparing meals, shopping, managing finances, etc.?: No Are you currently unemployed and looking for a job?: Yes Are you interested in more education?: Yes Please select the resources that you would like help with: None Currently or been in a relationship where the following occur: No concerns reported THRIVE Score: 0 AUDIT C Alcohol Use Questionnaire (AUDIT-C) 1. How often do you have a drink containing alcohol?: Never 3. How often do you have six or more drinks on one occasion?: Never Total Score: 0 STEPHEN-7 AMB Questionnaire STEPHEN-7 Date STEPHEN - 7 assessed: 05/05/25 Feeling nervous, anxious, or on edge: 1 = Several days Not being able to stop or control worryin = Several days Worrying too much about different things: 1 = Several days Trouble relaxin = Not at all Being so restless that it is hard to sit still: 0 = Not at all Becoming easily annoyed or irritable: 0 = Not at all Feeling afraid as if something awful might happen: 1 = Several days Total STEPHEN-7 score (0-4 normal; 5-9 mild; 10-14 moderate; 15-21 severe): 4 Source: Developed by Drs. Christiano Corey, Elena Abarca, José Miguel Blackwood and colleagues, with an educational blaine from [employer]. STEPHEN-7 Assessment Billing STEPHEN-7 Assessment Tool: STEPHEN-7 Assessment 47136 Review of Systems Const Denies headache(s) Eyes Denies loss of vision ENT Denies vertigo, Denies dizziness, Denies headache(s), Reports nasal congestion (on and off) and Denies sore throat Card Denies chest pain, Denies leg edema and Denies lightheadedness Resp Denies cough, Denies hemoptysis and Denies wheezing GI Reports abdominal pain (LLQ, right mid quadrant alternating), Denies melena, Reports constipation, Denies diarrhea and Denies vomiting Denies dysuria, Denies urinary frequency and Denies urinary urgency Musc Denies arthralgias, Denies joint swelling, Denies numbness and Denies tingling Neuro Denies Abnormal speech present, Denies behavioral changes, Denies vertigo, Denies dizziness, Denies headache(s), Denies loss of vision, Denies memory loss, Denies numbness and Denies tingling Psych Denies anxiety, Denies behavioral changes, Denies depression, Denies memory loss and Denies panic attacks Hu/Lymph Denies easy bleeding and Denies easy bruising Aller/Immun Denies wheezing Physical exam (Primary Care) Vital Signs: Last Vital Signs Temp 98.7 F 05/05/25 15:04 Pulse 88 05/05/25 15:04 Resp 14 05/05/25 15:04 BP 104/64 05/05/25 15:04 Pulse Ox 99 05/05/25 15:04 Oxygen Delivery Method Room Air 05/05/25 15:04 BMI result Body Mass Index 20.3 Tobacco/Smoking Status: Tobacco use Status Tobacco use date assessed 05/05/25 05/05/25 15:09 Patient Tobacco Use Status Never used Tobacco 05/05/25 15:09 PHQ-9: PHQ-9 Score PHQ-9: Total score 3 05/06/25 01:27 Depression Screening Interpretation: Negative Thrive Assessment: Date of Thrive Assessment Date Thrive assessed 05/05/25 05/05/25 15:09 Currently or been in a relationship where the following occur: No concerns repor ryan Const General: healthy appearing, no acute distress, alert and awake Nutritional Appearance: well nourished Orientation/consciousness: oriented to person, oriented to place and oriented to time HENMT Ears: TM's normal bilaterally General nose exam: Normal nasal mucous membranes and turbinates present Eyes Conjunctivae: conjunctivae normal Sclerae: sclerae normal Pupils: Equal, round and reactive pupils present Neck Neck: Yes no lymphadenopathy and Yes no JVD Thyroid: Thyroid normal Carotids: no bruits Resp Effort & Inspection: normal respiratory effort and not tachypneic Auscultation: no crackles, no rales, no rhonchi and no wheezes Cardio Rate: regular rate Rhythm: regular rhythm Heart sounds: no murmurs and normal S1 and S2 GI Palpation (GI): Soft to palpation, nontender, no hepatomegaly and no splen omegaly Auscultation: normal bowel sounds Skin General skin exam: no rashes or lesions noted and dry skin Neuro General: oriented to person, oriented to place and oriented to time Cranial nerves: Yes Equal, round and reactive pupils present Speech: No Abnormal speech present Gait exam (Neuro): Normal gait present Motor exam (neuro): no tremor noted Extrem Right upper extremity: full ROM Left upper extremity: full ROM Right lower extremity: full ROM; no edema Left lower extremity: full ROM; no edema Psych Mental Status: mental status grossly normal Speech and movement: Normal speech and movement present Affect: normal affect Attitude: cooperative Thought process: Normal thought process present Results Reviewed Results Reviewed: Laboratory Tests 01/26/25 03/03/25 03/03/25 12:11 19:27 19:46 WBC 7.5 RBC 5.10 Hgb 15.5 Hct 44.3 MCV 86.9 MCH 30.4 MCHC 35.0 RDW 12.5 Plt Count 322 MPV 9.3 L Immature Gran % (Auto) 0.1 Neut % (Auto) 76.2 H Lymph % (Auto) 16.4 L Worth % (Auto) 6.1 Sodium 138 Potassium 4.3 Chloride 104 Carbon Dioxide 24 Anion Gap 14 BUN 10 Creatinine 0.78 Estim Creat Clear Calc 121.7 Estimated GFR > 60 Random Glucose 99 Calcium 9.1 Magnesium 2.0 Total Bilirubin 1.0 AST 21 ALT 35 Alkaline Phosphatase 46 Total Protein 7.2 Albumin 4.7 Lipase 11 Urine Color Yellow Urine Appearance Clear Urine pH 6.5 Ur Specific [place] <= 1.005 Urine Protein Negative Urine Glucose (UA) Negative Urine Ketones Trace Urine Blood Negative Urine Nitrite Negative Ur Leukocyte Esterase Negative Chlam trachomat DNA PCR NOT DETECTED N.gonorrhoeae DNA (PCR) NOT DETECTED Coding Level of Care Code New Pt Level 4 (75420) Diagnoses Slow transit constipation K59.01 Constipation type: slow transit constipation Sebaceous cyst L72.3 Non-seasonal allergic rhinitis, unspecified trigger J30.89 Allergic rhinitis trigger: unspecified Allergic rhinitis seasonality: non-seasonal Additional Codes STEPHEN-7 Assessment Billing - STEPHEN-7 Assessment Tool: STEPHEN-7 Assessment 31525 ([id number]) PHQ-9 - 49134 - PHQ-9 Billing: Yes ([id number]) Time Spent (min) 42 Assessment & Plan Assessment & Plan (1) Constipation: Code(s): K59.00 - Constipation, unspecified Category: Medical Qualifiers: Constipation type: slow transit constipation Qualified Code(s): K59.01 - Slow transit constipation Plan: The patient reports having BMs every 3-4 days for years. Reports that his stools are like small chris. States that he is having on and off pain to his LLQ that sometimes radiates to his mid right quadrant. He is currently drinking 1 1/2 16 oz bottle of water. Explained to the patient that is issue seems to be constipation related. Encouraged the patient to increased his fluids and fiber intake. He was recent treated in the ED for concern of proctitis with Augmentin with short lived relief. Discussed with the patient and his mother that if his stool is sitting in his colon for 4 days, this could increases his chance of inflammation in the colon and this could have triggered the proctitis. In addition, all his labs were normal, including his WBC, which increases the chance of this mostly being constipation driven. (2) Sebaceous cyst: Code(s): L72.3 - Sebaceous cyst Category: Medical Plan: Left scrotum cyst that was treated with doxycycline recently. Self-reported that the area had gotten smaller. The plan for the patient to continue and monitor the area. Follow up with urology as scheduled (3) Allergic rhinitis: Code(s): J30.9 - Allergic rhinitis, unspecified Category: Medical Qualifiers: Allergic rhinitis trigger: unspecified Allergic rhinitis seasonality: non-seasonal Qualified Code(s): J30.89 - Other allergic rhinitis Plan: Reports allergy response to cats, dogs grass and dust that he manages with Flonase nose spray Limit exposure to allergens Air purifiers and dust filters Air conditioner in house, especially where sleeping Orders: Orders Lipid Panel 05/05/25 K59. - Constipation, unspecified, Z76.89 - Persons encountering health services in other specified circumstances CRP High Sensitivity 05/05/25 K59. - Constipation, unspecified, Z76.89 - Per sons encountering health services in other specified circumstances Vitamin D 25-OH Total 05/05/25 K59. - Constipation, unspecified, Z76.89 - Persons encountering health services in other specified circumstances TSH reflex Free T4 05/05/25 K59. - Constipation, unspecified, Z76.89 - Persons encountering health services in other specified circumstances Erythrocyte Sedimentation Rate 05/05/25 K59.00 - Constipation, unspecified, Z76.89 - Persons encountering health services in other specified circumstances
[2025-05-05 15:04] VITALS: BP 104/64; PULSE 88; RESP 14; TEMP 37.1; O2SAT 99; BMI 20.3
--- OUTSIDE RECORDS SUMMARY | 2025-05-05 16:06 | XMS_ITS | Clinical Summary ---
Author Organization [facility] Address [address] [place] [id number] Phone Care Team Providers Care Injection Specialist Name Role Phone Marin Juarez MD Primary Care Provider [phone] Immunizations Immunization Administration Dates Next Due DTaP [...] 72 09/21/2017 1:01 PM EST Temperature 36.9 C (98.4 F) 11/30/2017 2:37 PM EST Respiratory Rate - - Oxygen Saturation - [...] 05/16/2023 05/16/2013, 04/26/2006, 05/02/2002, Additional history exists COVID-19 Vaccine ( season) 2024 Influenza Vaccines (#1) 2025 09/21/20 17, 07/16/2015, 07/25/2013, Additional history exists Pneumococcal Vaccine Aged Out 05/01/2001, 02/28/2001, 2000 [...] age to complete this topic Care Teams Injection Specialist Relationship Specialty Start Date End Date Marin Juarez MD [address] [place] [address] [place] [id number] PCP - General 02/20/18
== END 2025-05-05 16:03 | disposition home or self-care (01) ==
LOC: HO.HMCH 15:03
DX: K59.01 Slow transit constipation (principal); L72.3 Sebaceous cyst; J30.89 Other allergic rhinitis

== ENCOUNTER → 2025-05-05 15:02 | Outpatient (BNVA) | payer OTHER, SELFPAY | DX: K59.01 Slow transit constipation (principal); L72.3 Sebaceous cyst; J30.89 Other allergic rhinitis | CPT/HCPCS: 96127 ==

== ENCOUNTER 2025-06-25 12:45 | Outpatient (REF) | payer OTHER, SELFPAY ==
[2025-06-25 14:33] LABS: Cholesterol 198 mg/dL (<200); HDL Cholesterol 47 mg/dL (>40); Triglycerides 114 mg/dL (<150)
--- OUTSIDE RECORDS SUMMARY | 2025-06-25 16:55 | XMS_ITS | Encounter Summary ---
Author Organization [facility] Address [address] [place] [id number] Phone Care Team Providers Care Fish Fryer Name Role Phone Marin Juarez MD Primary Care Provider [phone] Encounter Details Date Type Department Care Team (Late st Contact Info) Description 12/22/2010 Conversion Encounter [facility] [address] [place] [address] Dr Mcdaniel ENOC [id number] Social History Tobacco Use Types Packs/Day Years [...] on filedocumented in this encounter Care Teams Fish Fryer Relationship Specialty Start Date End Date Marin Juarez MD [address] [place] [address] Dr Mcdaniel ENOC [id number] PCP - General 02/20/18 documented as of this encounter
--- OUTSIDE RECORDS SUMMARY | 2025-06-25 16:55 | XMS_ITS | Clinical Summary ---
Author Organization [facility] Address [address] [place] [phone] Phone Care Team Providers Care Owner Operator Name Role Phone Marin Juarez MD Primary Care Provider [phone] Immunizations Immunization Administration Dates Next Due DTaP [...] 05/02/2002, Additional history exists Influenza Vaccines (#1) 2025 09/21/20 17, 07/16/2015, 07/25/2013, Additional history exists COVID-19 Vaccine ( season) 2025 Pneumococcal Vaccine Aged Out 05/01/2001, 02/28/2001, 2000 [...] age to complete this topic Care Teams Owner Operator Relationship Specialty Start Date End Date Marin Juarez MD [address] [place] [address] [place] [id number] PCP - General 02/20/18
== END 2025-06-25 12:46 | disposition home or self-care (01) ==
LOC: HO.LAB 12:45
DX: K59.00 Constipation, unspecified (principal); Z76.89 Persons encountering health services in other specified circumstances; Z13.6 Encounter for screening for cardiovascular disorders
CPT/HCPCS: 36415; 80061; 82306; 84443; 85652; 86141

== ENCOUNTER 2025-08-26 14:32 | Outpatient (AMB) | payer OTHER, SELFPAY ==
--- NOTE | 2025-08-26 14:39 | A.OFFPC_ITS ---
Vital Signs 08/26/25 14:41 Height 5 ft 4 in Weight 125 lb 2 oz BMI 21.5 BP 96/64 Blood Pressure Location Lt brachial Position Sitting Respiration 18 Pulse 103 H Pulse Source Pulse Oximeter Temp Source Temporal Artery Scan Pulse Oximetry (%) 97 Oxygen Delivery Method Room Air Intake Visit Reasons: annual Party Plan Demonstrator Required: No Accompanied by: Self / Same As Patient Allergies cat dander (cats) Allergy (Verified 08/26/25 14:53) Nasal congestion dog dander (dogs) Allergy (Verified 08/26/25 14:53) Nasal congestion grass pollen Allergy (Verified 08/26/25 14:53) Nasal congestion house dust mite Allergy (Verified 08/26/25 14:53) Nasal congestion Medication List - Last Reconciled 08/26/25 by DORIS Ann No Known Home Meds Tobacco use date assessed: 08/26/25 Dental Screening Dental Screen Date: 08/26/25 Did you have a dental visit in the last 12 months?: No Did you have a dental problem in the last 6 months where you did not have access to dental care?: No Was dental information given to patient?: No HPI annual HPI Details Dentist:In a long time, more than 5 years Eye: Reports that he needs to make an appointment because his distance vision has been getting worsening Snellen: Right: Left: Corrected vision: no STI screening:n/a Colonoscopy:n/a Pap Smer:n/a PHQ-9:n/a Flu: no COVID: x 2 Tdap: The patient is not sure when he had this last,but would like to hold off for now. Diet:regular Exercise: Reports that he was working out at least 3 times a day with his cousin, but his cousin has not been wanting to go lately. Reports right great toe ingrown nail, redness, and recent pus drainage He would also like his inhalers ordered that he was getting from his washer assembler because he is not sure when he will be able to see them Reports improvement in the his constipation, but still struggling with drinking the required amount of fluids Labs reviewed with patient-low vitamin d, he does not go outside much, mildly high cholesterol with a LDL at 129, dietary modifications discussed [facility] Medical History Allergic rhinitis Sebaceous cyst Constipation No pertinent past medical history Family History Maternal Grandfather Diabetes Maternal Grandmother Lung cancer Sister Diabetes Mother Multiple sclerosis exacerbation Social History Housing: House Patient Tobacco Use Status: Never used Tobacco e-Cigarette/Vaping Use: Never Used Current occupational status: unemployed Cognitive needs: No Hearing needs: No Vision needs: No Questionnaire PHQ-9 Over the last 2 weeks, how often have you been bothered by any of the following problems? Depression Screening Interpretation: Negative Depression Screening Done: Yes Source: Developed by Drs. Christiano Corey, Elena Abarca, José Miguel Blackwood and colleagues, with an educational blaine from [employer]. Thrive Questionnaire Date Thrive assessed: 04/28/25 I am a: Patient What is your living situation today?: I choose not to answer this question Within the past 12 months, did the food you bought not last and you didn't have the money to get more?: I choose not to answer this question Within the past 12 months, did you worry whether your food would run out before you got money to buy more?: I choose not to answer this question Do you have trouble paying for medicines?: I choose not to answer this question Do you have trouble getting transportation to medical appointments?: I choose not to answer this question Do you have trouble paying your heating and electricity bill?: I choose not to answer this question Do you have trouble taking care of your child, family member or friend?: I choose not to answer this question Do you have trouble with day-to-day activities such as bathing, preparing meals, shopping, managing finances, etc.?: No Are you currently unemployed and looking for a job?: Yes Are you interested in more education?: Yes Please select the resources that you would like help with: None Currently or been in a relationship where the following occur: No concerns reported THRIVE Score: 0 STEPHEN-7 AMB Questionnaire STEPHEN-7 Date STEPHEN - 7 assessed: 05/05/25 Source: Developed by Drs. Christiano Corey, José Miguel Malloy and colleagues, with an educational blaine from [employer]. Review of Systems Const Denies headache(s) Eyes Denies loss of vision ENT Denies vertigo, Denies dizziness, Denies headache(s), Reports nasal congestion (on and off) and Denies sore throat Card Denies chest pain, Denies leg edema and Denies lightheadedness Resp Denies cough, Denies hemoptysis and Denies wheezing GI Reports abdominal pain (LLQ, right mid quadrant alternating), Denies melena, Reports constipation (improved), Denies diarrhea and Denies vomiting Denies dysuria, Denies urinary frequency and Denies urinary urgency Musc Denies arthralgias, Denies joint swelling, Denies numbness and Denies tingling Skin/Breast Reports other (Right great toe ingrown toenail ) Neuro Denies Abnormal speech present, Denies behavioral changes, Denies vertigo, Denies dizziness, Denies headache(s), Denies loss of vision, Denies memory loss, Denies numbness and Denies tingling Psych Denies anxiety, Denies behavioral changes, Denies depression, Denies memory loss and Denies panic attacks Hu/Lymph Denies easy bleeding and Denies easy bruising Aller/Immun Denies wheezing Physical exam (Primary Care) Vital Signs: Last Vital Signs Pulse 103 H 08/26/25 14:41 Resp 18 08/26/25 14:41 BP 96/64 08/26/25 14:41 Pulse Ox 97 08/26/25 14:41 Oxygen Delivery Method Room Air 08/26/25 14:41 BMI result Body Mass Index 21.5 Tobacco/Smoking Status: Tobacco use Status Tobacco use date assessed 08/26/25 08/26/25 14:47 Patient Tobacco Use Status Never used Tobacco 08/26/25 14:40 e-Cigarette/Vaping Use Never Used 08/26/25 14:47 Depression Screening Interpretation: Negative Thrive Assessment: Date of Thrive Assessment Date Thrive assessed 04/28/25 08/26/25 14:40 Currently or been in a relationship where the following occur: No concerns reported Const General: healthy appearing, no acute distress, alert and awake Nutritional Appearance: well nourished Orientation/consciousness: oriented to person, oriented to place and oriented to time HENMT Ears: TM's normal bilaterally General nose exam: Abnormal mucous membranes and turbinates present erythematous bilateral Eyes Conjunctivae: conjunctivae normal Sclerae: sclerae normal Pupils: Equal, round and reactive pupils present Neck Neck: Yes no lymphadenopathy and Yes no JVD Thyroid: Thyroid normal Carotids: no bruits Resp Effort & Inspection: normal respiratory effort and not tachypneic Auscultation: no crackles, no rales, no rhonchi and no wheezes Cardio Rate: regular rate Rhythm: regular rhythm Heart sounds: no murmurs and normal S1 and S2 GI Palpation (GI): Soft to palpation, nontender, no hepatomegaly and no splenomegaly Auscultation: normal bowel sounds General: Yes no CVA tenderness Back/Spine/Pelvis Back: no CVA tenderness Skin General skin exam: dry skin Nails: other (Ingrown toenail (right great toe)) Neuro General: oriented to person, oriented to place and oriented to time Cranial nerves: Yes Equal, round and reactive pupils present Speech: No Abnormal speech present Gait exam (Neuro): Normal gait present Motor exam (neuro): no tremor noted Deep tendon reflexes (DTR's): Right triceps reflex intensity grade: 2+, Left triceps reflex intensity grade: 2+, Rt Biceps (C5, C6): 2+, Left biceps reflex intensity grade: 2+, Right brachioradialis reflex intensity grade: 2+, Left brachioradialis reflex intensity grade: 2+, Right patellar reflex intensity grade: 2+ and Left patellar reflex intensity grade: 2+ Extrem Right upper extremity: full ROM Left upper extremity: full ROM Right lower extremity: full ROM; no edema Left lower extremity: full ROM; no edema Psych Mental Status: mental status grossly normal Speech and movement: Normal speech and movement present Affect: normal affect Attitude: cooperative Thought process: Normal thought process present Results Reviewed Results Reviewed: Laboratory Tests 06/25/25 13:00 C-React Prot High Sens 0.5 Triglycerides 114 Cholesterol 198 LDL Cholesterol, Calc 129 H HDL Cholesterol 47 25-OH Vitamin D Total 21.1 L TSH 1.78 Coding Level of Care Code Est Pt Prev Care 18-39y(63824) Diagnoses Annual physical exam Z00.00 Slow transit constipation K59.01 Constipation type: slow transit constipation Sebaceous cyst L72.3 Non-seasonal allergic rhinitis, unspecified trigger J30.89 Allergic rhinitis trigger: unspecified Allergic rhinitis seasonality: non-seasonal Ingrowing right great toenail L60.0 Pure hypercholesterolemia E78.00 Hyperlipidemia type: pure hypercholesterolemia Vitamin D deficiency E55.9 Time Spent (min) 34 Assessment & Plan Assessment & Plan (1) Annual physical exam: Code(s): Z00.00 - Encounter for general adult medical examination without abnormal findings Category: Medical Plan: Preventative guidelines and recent labs reviewed with the patient (2) Constipation: Code(s): K59.00 - Constipation, unspecified Category: Medical Qualifiers: Constipation type: slow transit constipation Qualified Code(s): K59.01 - Slow transit constipation Plan: The patient reports having BMs every 3-4 days for years. Reports that his stools are like small chris. States that he is having on and off pain to his LLQ that sometimes radiates to his mid right quadrant. He is currently drinking 1 1/2 16 oz bottle of water. Explained to the patient that is issue seems to be constipation related. Encouraged the patient to increased his fluids and fiber intake. He was recent treated in the ED for concern of proctitis with Augmentin with short lived relief. Discussed with the patient and his mother that if his stool is sitting in his colon for 4 days, this could increases his chance of inflammation in the colon and this could have triggered the proctitis. In addition, all his labs were normal, including his WBC, which increases the chance of this mostly being constipation driven. The patient reports that his constipation has improved, as he was recently up to 4 bottles of water/day, but recently dropped back down to 3 bottles. Encouraged the patient to increase fluids intake even if he has to use a timer. Encouraged fiber supplements as well but discussed with the patient that the fiber won't work if he is not drinking enough water. (3) Sebaceous cyst: Code(s): L72.3 - Sebaceous cyst Category: Medical Plan: Left scrotum cyst that was treated with doxycycline recently. Self-reported that the area had gotten smaller. The plan for the patient to continue and monitor the area. Follow up with urology as scheduled (4) Allergic rhinitis: Code(s): J30.9 - Allergic rhinitis, unspecified Category: Medical Qualifiers: Allergic rhinitis trigger: unspecified Allergic rhinitis seasonality: non-seasonal Qualified Code(s): J30.89 - Other allergic rhinitis Plan: Reports allergy response to cats, dogs grass and dust that he manages with Flonase nose spray and azelastine nose spray gotten from his washer assembler. These inhalers were refilled for the patient per request. Limit exposure to allergens Air purifiers and dust filters Air conditioner in house, especially where sleeping (5) Ingrowing right great toenail: Code(s): L60.0 - Ingrowing nail Category: Medical Plan: Area is erythematous and edematous, tender to touch. Reports squeezing the pus out of the toe recently. Cephalexin 750 b.i.d. x7 days ordered initially. The pharmacy reported that they did not have this dosing. It was switched the cephalexin 500 mg b.i.d. x7 days, and the patient was referred to podiatry. (6) HLD (hyperlipidemia): Code(s): E78.5 - Hyperlipidemia, unspecified Category: Medical Qualifiers: Hyperlipidemia type: pure hypercholesterolemia Qualified Code(s): E78.00 - Pure hypercholesterolemia, unspecified Plan: Discussed lifestyle modifications including dietary changes and physical activity (7) Vitamin D deficiency: Code(s): E55.9 - Vitamin D deficiency, unspecified Category: Medical Plan: Cholecalciferol 50 mcg daily ordered. Discussed with the patient that this might not be covered by his insurance, and was encouraged to get vitamin D3 50 mcg OTC if it is denied. Plan Patient to return in 1 year or sooner for any concerns Orders: Referrals Podiatry Referral L60.0 - Ingrowing nail Medications: New cephalexin 500 mg PO BID 14 tabs 0RF 7 days cholecalciferol (vitamin D3) 50 mcg PO DAILY 90 caps 3RF
[2025-08-26 14:41] VITALS: BP 96/64; PULSE 103; RESP 18; O2SAT 97; BMI 21.5
--- OUTSIDE RECORDS SUMMARY | 2025-08-26 18:02 | XMS_ITS | Encounter Summary ---
Author Organization [facility] Address [address] [place] [id number] Phone Care Team Providers Care Welding Machine Operator Electroslag Name Role Phone Marin Juarez MD Primary Care Provider [phone] Encounter Details Date Type Department Care Team (Late st Contact Info) Description 12/22/2010 Conversion Encounter [facility] [address] [place] [address] Dr Mcdaniel ENOC [id number] Social History Tobacco Use Types Packs/Day Years [...] on filedocumented in this encounter Care Teams Welding Machine Operator Electroslag Relationship Specialty Start Date End Date Marin Juarez MD [address] [place] [address] Dr Mcdaniel ENOC [id number] PCP - General 02/20/18 documented as of this encounter
--- OUTSIDE RECORDS SUMMARY | 2025-08-26 18:02 | XMS_ITS | Clinical Summary ---
Author Organization [facility] Address [address] [place] [id number] Phone Care Team Providers Care Prints And Drawings Curator Name Role Phone Marin Juarez MD Primary Care Provider [phone] Immunizations Immunization Administration Dates Next Due DTaP [...] age to complete this topic Care Teams Prints And Drawings Curator Relationship Specialty Start Date End Date Marin Juarez MD [address] [place] [address] [place] [id number] PCP - General 02/20/18
== END 2025-08-26 15:27 | disposition home or self-care (01) ==
LOC: HO.HMCH 14:33
DX: Z00.00 Encounter for general adult medical examination without abnormal findings (principal); K59.01 Slow transit constipation; L72.3 Sebaceous cyst; J30.89 Other allergic rhinitis; L60.0 Ingrowing nail; E78.00 Pure hypercholesterolemia, unspecified; E55.9 Vitamin D deficiency, unspecified